=== PATIENT | female | born 1950 | race Caucasian/White ===

== ENCOUNTER 2022-02-21 21:41 | Emergency (ER) | payer OTHER ==
--- OUTSIDE RECORDS SUMMARY | 2022-02-21 21:44 | XMS REPORT | Continuity of Care Document ---
:1950 Author Organization [facility] t Address [address] [place] [address] Care Team Providers Name Role Phone SLY WOLFF Primary Care Physician Unavailable Phyllis Madrid Attending Clinician Unavailable AgAlina Attending Clinician Unavailable Radiology Attending Clinician Unavailable RADIOLOGY Attending Clinician Unavailable Sly Wolff NP Attending Clinician Unavailable Bhupinder Admitting Clinician Unavailable Payers Payer Name Policy Type Policy Number Effective Date Expiration Date [facility] [place]: [id number] 2013 [place] 00:00:00 CIGNA SUPPLEMENTAL - PLAN N CIGNA HEALTH AND LIFE INSURANCE (MEDICARE SUPPLEMENT[place] [id number] Problems Condition Condition Condition Status Onset Resolution Last Treating Co mments Source Name Details Category Date Date Treatment Clinician Date Glaucoma Glaucoma Problem Active Chowdhury ge 07-29 Family 00:00: Practic 00 e Overactive Overactive Problem Active V illage bladder Bladder 07-29 Family 00:00: Practic 00 e [id number] Non-season Problem Com mon al Spirit allergic - [facility] rhinitis [facility] due to [facility] [id number] Stress Problem Common incontinen Spirit ce - [facility] [id number] Pain, Problem Commo n [id number] joint, Spirit foot, - [facility] right [facility] [id number] Extensor Problem Commo n tendon Spirit disruption - [facility] Allergies, Adverse Reactions, Alerts Allergy Allergy Status Severity Reaction(s) Onset Inactive Treating Comm ents Source Name Type Date Date Clinician NO KNOWN Drug Active Univers ALLERGIE Class ity of S [facility] [id number] DA Active U [facility] penicill penicill Active Unknown Commo n in V in V [facility] Social History Social Habit Start Date Stop Date Quantity Comments Source History of Tobacco Use Co mmon [facility] Sex Assigned At Com mon [facility] Exposure to SARS-CoV-2 Not sure Un [facility] (event) [facility] Smoking Status Start Date Stop Date Source Unknown if ever smoked [facility] Never Smoker [facility] Former Smoker 2021 00:00:00 2021 00:00:00 Common S [facility] nter Medications Ordered Filled Start Stop Current Ordering Indication Dosage Frequency Signature Comments Components Source Medication Medication Date Date Medication? Clinician (SIG) Name Name Christine Burlesoniq 2022- No 1{table QD Myrbetriq 25 MG 25 MG 11-16 t} 25 MG 00:00: 00:00 00 :00 Myrbetriq Myrbetriq 2022- No 1{table QD Myrbetriq 25 MG 25 MG 11-16 t} 25 MG 00:00: 00:00 00 :00 Oxybutynin Oxybutynin 2021- No 1{table QD Oxybutynin Chloride ER Chloride ER 05-10 t} Chloride 10 MG 10 MG 00:00: 00:00 ER 10 MG 00 :00 Oxybutynin Oxybutynin 2021- No 1{table QD Oxybutynin Chloride ER Chloride ER 05-10 t} Chloride 10 MG 10 MG 00:00: 00:00 ER 10 MG 00 :00 Oxybutynin Oxybutynin 2021- No 1{table QD Oxybutynin Chloride ER Chloride ER 05-10 t} Chloride 10 MG 10 MG 00:00: 00:00 ER 10 MG 00 :00 Oxybutynin Oxybutynin 2021- No 1{table QD Oxybutynin Chloride ER Chloride ER 05-10 t} Chloride 10 MG 10 MG 00:00: 00:00 ER 10 MG 00 :00 Mirabegron Mirabegron 2021- No 1{table QD Mirabegron ER 25 MG ER 25 MG 04-12 t} ER 25 MG 00:00: 00:00 00 :00 Mirabegron Mirabegron 2021- No 1{table QD Mirabegron ER 25 MG ER 25 MG 04-12 t} ER 25 MG 00:00: 00:00 00 :00 oxybutynin oxybutynin No 1 Q1D oxybutynin [place] chloride 5 chloride 5 8-01 chloride 5 Family mg tablet 1 mg tablet 1 00:00: mg tablet Practic tablet tablet 00 1 tablet e every day every day every day by oral by oral by oral route. route. route. Oxybutynin Oxybutynin No Oxybutynin Claritin Claritin No Claritin Claritin Claritin No Claritin Oxybutynin Oxybutynin No Oxybutynin Claritin Claritin No Claritin Oxybutynin Oxybutynin No Oxybutynin Claritin Claritin No Claritin Oxybutynin Oxybutynin No Oxybutynin Oxybutynin Oxybutynin No Oxybutynin Claritin Claritin No Claritin Oxybutynin Oxybutynin No Oxybutynin Claritin Claritin No Claritin Oxybutynin Oxybutynin No Oxybutynin Claritin Claritin No Claritin Oxybutynin Oxybutynin No Oxybutynin Claritin Claritin No Claritin latanoprost latanoprost No latanopros [place] 0.005 % eye 0.005 % eye t 0.005 % Family drops drops eye drops Practic INSTILL 1 INSTILL 1 INSTILL 1 e DROP INTO DROP INTO DROP INTO BOTH EYES BOTH EYES BOTH EYES EVERY NIGHT EVERY NIGHT EVERY AT BEDTIME AT BEDTIME NIGHT AT BEDTIME tolterodine tolterodine No 1capsul Q1D tolterodin [place] ER 2 mg ER 2 mg e(s) e ER 2 mg Fami ly capsule,ext capsule,ext capsule,ex Practic ended ended tended e release 24 release 24 release 24 hr Take 1 hr Take 1 hr Take 1 capsule capsule capsule every day every day every day by oral by oral by oral route for route for route for 30 days. 30 days. 30 days. Vital Signs Vital Name Observation Time Observation Value Comments Source height 2021 15:00:00 66 [in_i] [facility] weight 2021 15:00:00 189.8 [lb_av] [facility] temperature 2021 15:00:00 97.6 [degF] Common [facility] bmi 2021 15:00:00 30.63 kg/m2 [facility] oximetry 2021 15:00:00 93 % [facility] respiratory rate 2021 15:00:00 16 /min Comm on [facility] blood pressure 2021 15:00:00 128 mm[Hg] [facility] [place] [place] - systolic [facility] blood pressure 2021 15:00:00 70 mm[Hg] Common [facility] - diastolic [facility] height 2021-09-16 13:00:00 66 [in_i] [facility] weight 2021-09-16 13:00:00 189.0 [lb_av] [facility] temperature 2021-09-16 13:00:00 97.7 [degF] [facility] bmi 2021-09-16 13:00:00 30.5 kg/m2 [facility] oximetry 2021-09-16 13:00:00 94 % [facility] respiratory rate 2021-09-16 13:00:00 17 /min Comm on [facility] blood pressure 2021-09-16 13:00:00 128 mm[Hg] Common [facility] - systolic [facility] blood pressure 2021-09-16 13:00:00 68 mm[Hg] Common [facility] - diastolic [facility] height 2021-04-25 09:00:00 66 [in_i] Common [facility] weight 2021-04-25 09:00:00 187 [lb_av] [facility] bmi 2021-04-25 09:00:00 30.18 kg/m2 [facility] blood pressure 2021-04-25 09:00:00 124 mm[Hg] Common [facility] - systolic [facility] blood pressure 2021-04-25 09:00:00 68 mm[Hg] Common [facility] - diastolic [facility] height 2021-04-12 09:00:00 66 [in_i] [facility] weight 2021-04-12 09:00:00 187.0 [lb_av] [facility] temperature 2021-04-12 09:00:00 97.4 [degF] [facility] bmi 2021-04-12 09:00:00 30.18 kg/m2 [facility] oximetry 2021-04-12 09:00:00 97 % [facility] respiratory rate 2021-04-12 09:00:00 16 /min Comm on [facility] blood pressure 2021-04-12 09:00:00 122 mm[Hg] [facility] [place] [facility] blood pressure 2021-04-12 09:00:00 64 mm[Hg] Common [facility] diastolic [facility] Height 2020-07-29 00:00:00 66 [in_i] [facility] BMI (Body Mass Index) 2020-07-29 00:00:00 30.7 kg/m2 [facility] Body Weight 2020-07-29 00:00:00 190 [lb_av] [facility] Procedures Procedure Date / Time Performing Clinician Source Performed XR SACRUM AND COCCYX 2021-01-19 17:13:17 Sly Wolff [facility] XR ANKLE <3 VW LEFT 2021-01-19 17:13:17 Sly Wolff [facility] BI SCREENING 2021-01-19 16:31:00 Requisition, [facility] TOMOSYNTHESIS BILATERAL [facility] 2011-02-26 00:00:00 [place] [facility] 2009-02-26 00:00:00 [place] [facility] 2001-03-07 00:00:[address] 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) 1975-02-26 00:00:00 Stormy saniya [facility] Cataract Surgery [facility] Plan of Care Planned Activity Planned Date Details Comments Source Instructions [facility] Encounters Start End Encounter Admission Attending Care Care Encounter Source Date/Time Date/Time Type Type Clinicians Facility Department ID 2021-11-10 Outpatient [place], [facility] [id number] Common 09:11:01 [facility] 2021-11-08 Outpatient [place], [facility] [id number] Common 15:19:01 [facility] 2021-05-06 Outpatient [place], [facility] [id number] Common 10:13:01 [facility] 2021-04-25 Outpatient [place], [facility] [id number] Common 10:34:02 [facility] 2021-04-19 Outpatient Madrid, [facility] [id number] Common 12:54:03 [facility] 2021-04-12 Outpatient Madrid, [facility] [id number] Common 08:32:02 [facility] 2022-01-03 2022-01-03 Outpatient Aguilar_M VFP VFP [id number] [id number] [place] 00:00:00 00:00:00 [id number] Family Practic e 2021 2021 OFFICE [facility] [id number] Co mmon 00:00:00 00:00:00 VISIT [facility] 4 [facility] 2021-09-21 2021-09-21 (WEB) STLC STLC [id number] Co mmon 00:00:00 00:00:00 [facility] 2021-09-162021-09-16 (MCR WELL) STLMLC STLMLC [id number] Common 00:00:00 00:00:00 Medicare Spiri t Wellness - [facility] 2021-09-16 2021-09-16 (TEL) STLMLC STLMLC [id number] Co mmon 00:00:00 00:00:00 Spirit - [facility] 2021-05-10 2021-05-10 OL DIG E/M STLMLC STLMLC [id number] Common 00:00:00 00:00:00 [facility] 11-20 Spir it MIN - [facility] 2021-04-25 2021-04-25 OFFICE STLMLC STLMLC [id number] Co mmon 00:00:00 00:00:00 VISIT NEW Spir it PT LEVEL 3 - [facility] 2021-04-12 2021-04-12 OFFICE STLMLC STLMLC [id number] Co mmon 00:00:00 00:00:00 VISIT NEW Spir it PT LEVEL 4 - [facility] 2021-01-19 2021-01-19 [facility] Radiology [facility] [id number] Univers 10:40:35 23:59:00 Encounter SPECIALTY [id number] ity of CARE [id number] [facility] AT [id number] Vt karmajunaid BAILEYDalia 807 [facility] 2021-01-19 2021-01-19 Outpatient R RADIOLOGY [facility] [id number] Univers 10:16:12 10:39:00 ity of [facility] 2021-01-19 2021-01-19 [facility] Radiology [facility] [id number] Univers 10:15:00 10:39:00 Encounter SPECIALTY [id number] ity [id number] [id number] Vt dical VIVIENNE 800 [facility] 2021-01-13 2021-01-13 Outpatient R Sly OS OSH [id number] [place] 00:00:00 00:00:00 Rebecca Wolff et 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 [place] [address] , Ph. 2020-07-28 2020-07-28 Outpatient Aguilar_M VFP VFP [id number] [place] 01:58:00 01:58:00 [id number] [facility] Practic e Results This patient has no known results.
[2022-02-21] MEDS ORDERED: NA CHLORIDE 0.9% 500 ML ONE (22:23)
[2022-02-21 22:33] LABS: Hematocrit 39.1 % (36.0-45.0); Lymphocytes % 15.6 % (15.3-44.8); MCV 97.1 fL (80-100); MPV 8.5 fL (7.6-11.3); Potassium 3.8 mmol/L (3.5-5.1); RBC Red Blood Cell Count 4.03 M/uL (3.86-4.86); Troponin High Sensitivity 4.7 pg/mL (<58.9)
[2022-02-21 22:36] LABS: Protime INR 0.98
[2022-02-21 23:42] LABS: SARS-COV-2 RT PCR NEGATIVE (NEGATIVE)
--- NOTE | 2022-02-22 00:39 | ER ---
Nurse's Notes [facility] Name: Ibeth Neff Age: 71 yrs Sex: Female : 1950 Arrival Date: 02/21/2022 Time: 21:43 Bed 8 Private MD: Diagnosis: Syncope;Dehydration Presentation: 02/21 21:44 Chief complaint: EMS states: " Patient was in the hot tub and when she got out she felt em6 over heated and fainted.". 21:44 Coronavirus screen: Client denies travel out of the [place] in the last 14 days. Ebola em6 Screen: Patient negative for fever greater than or equal to 101.5 degrees Fahrenheit, and additional compatible Ebola Virus Disease symptoms. Initial Sepsis Screen: Does the patient meet any 2 criteria? No. Patient's initial sepsis screen is negative. Does the patient have a suspected source of infection? No. Patient's initial sepsis screen is negative. Risk Assessment: Do you want to hurt yourself or someone else? Patient reports no desire to harm self or others. Onset of symptoms was February 21, 2022. 21:44 Method Of Arrival: EMS: [facility] em6 21:44 Acuity: SANDI 3 em6 Historical: - Allergies: 22:54 PENICILLINS; em6 - PMHx: 22:54 None; em6 - PSHx: 22:54 Total abdominal hysterectomy; cornea surgery; em6 - Immunization history:: Adult Immunizations unknown. - Social history:: Smoking status: unknown. - Family history:: not pertinent. - Hospitalizations: : No recent hospitalization is reported. Screenin:44 [facility] ED Fall Risk Assessment (Adult) History of falling in the last 3 months, em6 including since admission No falls in past 3 months (0 pts) Confusion or Disorientation No (0 pts) Intoxicated or Sedated No (0 pts) Impaired Gait No (0 pts) Mobility Assist Device Used No (0 pt) Altered Elimination No (0 pt) Score/Fall Risk Level 0 - 2 = Low Risk Oriented to surroundings, Maintained a safe environment, Educated pt \\T\\ family on fall prevention, incl call for assistance when getting out of bed, Assessed \\T\\ reinforced patient's understanding of fall precautions, Provided non-skid footwear, Hourly rounding (assess needs \\T\\ fall precautionary measures) done, Used ambulatory aids as needed (educated on \\T\\ assisted with), Used gait belt as appropriate. Abuse screen: Denies threats or abuse. Nutritional screening: No deficits noted. Nutritional screening: No deficits noted. Tuberculosis screening: No symptoms or risk factors identified. Assessment: 21:44 General: Appears in no apparent distress. Behavior is cooperative. Pain: Denies pain. em6 Neuro: Level of Consciousness is awake, alert, obeys commands, Oriented to person, place, time, situation. Cardiovascular: Patient's skin is warm and dry. Rhythm is sinus rhythm. Respiratory: Airway is patent Respiratory effort is even, unlabored, Respiratory pattern is regular, symmetrical. GI: Abdomen is non-distended, Bowel sounds present X 4 quads. Abd is soft and non tender X 4 quads. : No signs and/or symptoms were reported regarding the genitourinary system. EENT: No signs and/or symptoms were reported regarding the EENT system. Derm: No signs and/or symptoms reported regarding the dermatologic system. Musculoskeletal: Circulation, motion, and sensation intact. Range of motion: intact in all extremities. 22:50 Reassessment: Patient appears in no apparent distress at this time. No changes from em6 previously documented assessment. Patient and/or family updated on plan of care and expected duration. Pain level reassessed. Patient is alert, oriented x 3, equal unlabored respirations, skin warm/dry/pink. Vital Signs: 21:43 BP 114 / 61; Pulse 65; Resp 18; Pulse Ox 96% on R/A; Weight 86.18 kg (R); Height 5 ft. as6 6 in. (167.64 cm) (R); Pain 0/10; 23:33 BP 114 / 76; Pulse 61; Resp 17 S; Pulse Ox 94% on R/A; as6 02/22 00:25 BP 109 / 70; Pulse 63; Resp 17 S; Pulse Ox 94% on R/A; as6 02/21 21:43 Body Mass Index 30.67 (86.18 kg, 167.64 cm) as6 ED Course: 02/21 21:43 Patient arrived in ED. as6 21:44 Arm band placed on. as6 21:44 Bed in low position. Call light in reach. Side rails up X 1. spread cutter on. Pulse em6 ox on. NIBP on. Warm blanket given. 21:47 Warren Rosado MD is Attending Physician. rn 22:03 Initial lab(s) drawn, by me, sent to lab. Maintain EMS IV. Dressing intact. Good blood mb4 return noted. Site clean \\T\\ dry. Gauge \\T\\ site: 18G right AC. 22:04 Basic Metabolic Panel Sent. mb4 22:04 CBC with Diff Sent. mb4 22:04 Protime (+inr) Sent. mb4 22:04 Ptt, Activated Sent. mb4 22:04 Troponin High Sensitivity Sent. mb4 22:34 COVID-19/FLU A+B Sent. em6 22:49 Harini Littlejohn, RN is Primary Nurse. em6 22:52 Triage completed. em6 22:55 Chest Single View XRAY In Process Unspecified. EDMS 02/22 00:56 No provider procedures requiring assistance completed. IV discontinued, intact, ll3 bleeding controlled, No redness/swelling at site. Pressure dressing applied. Administered Medications: 02/21 22:34 Drug: NS 0.9% 500 ml Route: IV; Rate: bolus; Site: right antecubital; em6 Medication: 22:53 VIS not applicable for this client. em6 Outcome: 02/22 00:38 Discharge ordered by . rn 00:56 Discharged to home ambulatory, with significant other. ll3 00:56 Condition: stable 00:56 Discharge instructions given to patient, significant other, Instructed on discharge instructions, follow up and referral plans. Demonstrated understanding of instructions, follow-up care. 00:56 Patient left the ED. ll3 Signatures: Dispatcher [employer] EDGA Warren Rosado MD MD rn Baxter, Mackenzie mb4 Danny Fernandez RN RN as6 Guillermina Leonard RN RN ll3 Harini Littlejohn, RN RN em6
--- NOTE | 2022-02-22 00:39 | EDPHYS ---
Physician Documentation [facility] Name: Ibeth Neff Age: 71 yrs Sex: Female : 1950 Arrival Date: 02/21/2022 Time: 21:43 Bed 8 Private MD: ED Physician Warren Rosado HPI: 02/21 22:57 This 71 yrs old Female presents to ER via EMS with complaints of Fainting. rn 22:57 The patient has experienced syncope. Onset: The symptoms/episode began/occurred just rn prior to arrival. Duration: This was a single episode. Associated injury: The patient did not suffer any apparent associated injury. Associated signs and symptoms: Pertinent positives: dizziness, lightheadedness, Pertinent negatives: abdominal pain, chest pain, confusion, headache, seizure, shortness of breath. Current symptoms: Currently, the patient is not experiencing any symptoms. The patient has not experienced similar symptoms in the past. The patient has not recently seen a physician. Pt reports has had "a cold" the last few days, didn't feel well, tonight had 3 glasses of wine and got into hot tub, felt lightheaded and when stood up passed out. No fever. Reports nasal congestion/sore throat/cough. No chest pain/sob/abd pain/vomiting/diarrhea. Feels much better now. Initial BP was low, in 90s for EMS, given 800cc fluids by EMS with improvement of BP. Patient reports BP always runs on lower side, but not that low. . Historical: - Allergies: 22:54 PENICILLINS; em6 - PMHx: 22:54 None; em6 - PSHx: 22:54 Total abdominal hysterectomy; cornea surgery; em6 - Immunization history:: Adult Immunizations unknown. - Social history:: Smoking status: unknown. - Family history:: not pertinent. - Hospitalizations: : No recent hospitalization is reported. ROS: 22:57 Constitutional: Negative for fever, chills, and weight loss, Eyes: Negative for injury, rn pain, redness, and discharge, ENT: + nasal congestion and sore throat Neck: Negative for injury, pain, and swelling, Cardiovascular: Negative for chest pain, palpitations, and edema, Respiratory: Negative for shortness of breath, wheezing, and pleuritic chest pain, Abdomen/GI: Negative for abdominal pain, nausea, vomiting, diarrhea, and constipation, Back: Negative for injury and pain, MS/Extremity: Negative for injury and deformity, Skin: Negative for injury, rash, and discoloration, Neuro: Negative for headache, numbness, tingling, and seizure. Exam: 22:57 Constitutional: This is a well developed, well nourished patient who is awake, alert, rn and in no acute distress. Head/Face: Normocephalic, atraumatic. Eyes: Pupils equal round and reactive to light, extra-ocular motions intact. Lids and lashes normal. Conjunctiva and sclera are non-icteric and not injected. Cornea within normal limits. Periorbital areas with no swelling, redness, or edema. ENT: dry MM Neck: Trachea midline, no thyromegaly or masses palpated, and no cervical lymphadenopathy. Supple, full range of motion without nuchal rigidity, or vertebral point tenderness. No Meningismus. Cardiovascular: Regular rate and rhythm. No pulse deficits. Respiratory: No increased work of breathing, no retractions or nasal flaring. Abdomen/GI: Soft, non-tender Skin: Warm, dry MS/ Extremity: Pulses equal, no cyanosis. Neuro: Awake and alert, GCS 15, oriented to person, place, time, and situation. Cranial nerves II-XII grossly intact. Motor strength 5/5 in all extremities. Sensory grossly intact. 23:09 ECG was reviewed by the Attending Physician. rn Vital Signs: 21:43 BP 114 / 61; Pulse 65; Resp 18; Pulse Ox 96% on R/A; Weight 86.18 kg (R); Height 5 ft. as6 6 in. (167.64 cm) (R); Pain 0/10; 23:33 BP 114 / 76; Pulse 61; Resp 17 S; Pulse Ox 94% on R/A; as6 02/22 00:25 BP 109 / 70; Pulse 63; Resp 17 S; Pulse Ox 94% on R/A; as6 02/21 21:43 Body Mass Index 30.67 (86.18 kg, 167.64 cm) as6 MDM: 02/21 21:47 Patient medically screened. rn 02/22 00:36 Differential Diagnosis: cardiac arrhythmia, idiopathic syncope, vasovagal episode, rn dehydration, covid, flu. Data reviewed: vital signs, nurses notes, lab test result(s), EKG, radiologic studies, plain films, and as a result, I will discharge patient. Counseling: I had a detailed discussion with the patient and/or guardian regarding: the historical points, exam findings, and any diagnostic results supporting the discharge/admit diagnosis, lab results, radiology results, the need for outpatient follow up, to return to the emergency department if symptoms worsen or persist or if there are any questions or concerns that arise at home. Response to treatment: the patient's symptoms have markedly improved after treatment, and as a result, I will discharge patient. Special discussion: I discussed with the patient/guardian in detail that at this point there is no indication for admission to the hospital. It is understood, however, that if the symptoms persist or worsen the patient needs to return immediately for re-evaluation. Based on the history and exam findings, there is no indication for further emergent testing or inpatient evaluation. I discussed with the patient/guardian the need to see the primary care provider for further evaluation of the symptoms. ED course: Vitals stable, pt feels back to baseline, requests to be discharged, recommend outpt CT chest to further eval and rule out mass, although nothing to suggest is acute problem or related to today's complaint. Return precautions given and understood.. 02/21 21:52 Order name: Basic Metabolic Panel; Complete Time: 22:57 02/21 21:52 Order name: CBC with Diff; Complete Time: 22:57 02/21 21:52 Order name: Protime (+inr); Complete Time: 22:57 02/21 21:52 Order name: Ptt, Activated; Complete Time: 22:57 02/21 21:52 Order name: Troponin High Sensitivity; Complete Time: 22:57 02/21 21:52 Order name: COVID-19/FLU A+B; Complete Time: 23:43 02/21 21:52 Order name: Chest Single View XRAY 02/21 21:52 Order name: EKG; Complete Time: 21:53 02/21 21:52 Order name: Cardiac monitoring; Complete Time: 22:34 02/21 21:52 Order name: EKG - Nurse/Tech; Complete Time: 22:34 02/21 21:52 Order name: IV Saline Lock; Complete Time: 22:04 02/21 21:52 Order name: Labs collected and sent; Complete Time: 22:04 rn 02/21 21:52 Order name: O2 Per Protocol; Complete Time: :34 rn 02/21 21:52 Order name: O2 Sat Monitoring; Complete Time: :34 rn EC/27 23:09 Rate is 62 beats/min. Rhythm is regular. QRS [place] is Normal. IA interval is prolonged rn at 210 msec. QRS interval is normal. QT interval is normal. No Q waves. T waves are Normal. No ST changes noted. Clinical impression: NSR w/ Non-specific ST/T Changes and 1st degree heart block. Interpreted by me. Reviewed by me. Administered Medications: Drug: NS 0.9% 500 ml Route: IV; Rate: bolus; Site: right antecubital; em6 Disposition Summary: 02/22/22 00:38 Discharge Ordered Location: Home rn Problem: new rn Symptoms: have improved rn Condition: Stable rn Diagnosis - Syncope rn - Dehydration rn Followup: rn - With: Private Physician - When: As needed - Reason: Recheck today's complaints, Re-evaluation by your physician Discharge Instructions: - Discharge Summary Sheet rn - Dehydration, Adult rn - Syncope rn Forms: - Medication Reconciliation Form rn - Thank You Letter rn - Antibiotic corn miller - Prescription Opioid Use rn Signatures: Dispatcher [employer] Warren Billy MD MD rn Martinez, Erika RN RN em6
[2022-02-22 01:10] VITALS: O2SAT 94
[2022-02-22 01:14] VITALS: BP 109/70
--- NOTE | 2022-02-22 14:39 | RAD REPORT ---
EXAM DESCRIPTION: RAD - Chest Single View - 02/21/2022 10:53 pm CLINICAL HISTORY: 71-year-old female with cough. TECHNIQUE: Single view, AP portable chest was obtained. COMPARISON: None. FINDINGS: Unremarkable cardiac and mediastinal silhouette. Heart size is normal. Round density overl kaiser the projection of the cardiac silhouette suggestive of a large hiatal hernia. The possibility of mediastinal mass is considered less likely, however cannot be completely excluded measuring 10 cm. P lease correlate with patient's clinical history. Low lung volumes otherwise grossly clear without focal opacity, pneumothorax or pleural effusions. Ir regularity of the posterolateral left upper ribs the fourth and fifth ribs may reflect sequela of cynthia or healed injury. The visualized bones are within normal limits. IMPRESSION: 1. No acute cardiopulmonary abnormalities. 2. Round density overlying the projection of the cardiac silhouette suggestive of a large hiatal he rnia. The possibility of mediastinal mass is considered less likely, however cannot be completely exc luded measuring 10 cm. Further evaluation with chest x-ray may be considered. Electronically signed by: Kalli Brooks MD 02/21/2022 11:43 PM TELEPHONE CLEANER Due to temporary technical issues with the PACS/Fluency reporting system, reports are being signed by the in house radiologists without review as a courtesy to insure prompt reporting. The interpreting radiologist is fully responsible for the content of the report.
--- NOTE | 2022-02-23 17:48 | EKG ---
Test Date: 2022-02-21 Test Time: 22:28:15 Computing Consultant: MEASUREMENT RESULTS: Intervals: Rate: 62 IA: 210 QRSD: 80 QT: 392 QTc: 397 Echo: P: 67 IA: 210 QRS: -24 T: -38 INTERPRETIVE STATEMENTS: Sinus rhythm with 1st degree AV block ST & T wave abnormality, consider anterior ischemia Abnormal ECG No previous ECG available for comparison Electronically Signed On 02-23-22 17:44:45 CORNICE MAKER by Nba Gonzalez
== END 2022-02-22 00:56 | disposition home or self-care (01) ==
LOC: ER 21:41
DX: E86.0 Dehydration (principal); Z20.822 Contact with and (suspected) exposure to COVID-19; Z88.0 Allergy status to penicillin
CPT/HCPCS: 93005; 85025; 80048; 36415; 85610; 85730; 84484; 0240U; 71045; J7040

== ENCOUNTER 2022-07-07 11:01 | Emergency (ER) | payer OTHER ==
--- OUTSIDE RECORDS SUMMARY | 2022-07-07 11:05 | XMS REPORT | Continuity of Care Document ---
:1950 Author Organization [facility] t Address [address] [place] [address] Care Team Providers Name Role Phone SLY WOLFF Primary Care Physician Unavailable Phyllis Madrid Attending Clinician Unavailable Bhupinder Attending Clinician Unavailable Radiology Attending Clinician Unavailable RADIOLOGY Attending Clinician Unavailable Sly Wolff NP Attending Clinician Unavailable Bhupinder Admitting Clinician Unavailable Payers Payer Name Policy Type Policy Number Effective Date Ex[place] Date [place] [facility] [place] [id number] 2013 [employer] 00:00:00 CIGNA SUPPLEMENTAL - PLAN N CIGNA HEALTH AND LIFE INSURANCE (MEDICARE SUPPLEMENT[place] [id number] Problems Condition Condition Condition Status Onset Resolution Last Treating Co mments Source Name Details Category Date Date Treatment Clinician Date Glaucoma Glaucoma Problem Active Chowdhury ge - Family 00:00: Practic 00 e Overactive Overactive Problem Active V illage bladder Bladder - Family 00:00: Practic 00 e [id number] Non-season Problem Com mon al Spirit allergic - [facility] rhinitis [facility] due to [facility] [id number] Stress Problem Common incontinen Spirit ce - [facility] [id number] Pain, Problem Commo n [id number] joint, Spirit foot, - [facility] right [facility] [id number] Extensor Problem Commo n tendon Spirit disruption - [facility] Allergies, Adverse Reactions, Alerts Allergy Allergy Status Severity Reaction(s) Onset Inactive Treating Comm ents Source Name Type Date Date Clinician NO KNOWN Drug Active Univers ALLERGIE Class ity of S [facility] 299691 DA Active U [facility] penicill penicill Active Unknown Commo n in V in V [facility] Social History Social Habit Start Date Stop Date Quantity Comments Source History of Tobacco Use Co mmon [facility] Sex Assigned At Com mon [facility] Exposure to SARS-CoV-2 Not sure Un [facility] (event) [facility] Smoking Status Start Date Stop Date Source Never Smoker [facility] Unknown if ever smoked [facility] Former Smoker 2021 00:00:00 2021 00:00:00 Common S [facility] nter Medications Ordered Filled Start Stop Current Ordering Indication Dosage Frequency Signature Comments Components Source Medication Medication Date Date Medication? Clinician (SIG) Name Name Chanabelove Zayasbetriq 2022- No 1{table QD Myrbetriq 25 MG [...] :00 oxybutynin oxybutynin No 1 Q1D oxybutynin [facility] chloride 5 chloride 5 8-01 chloride 5 [...] Claritin No Claritin latanoprost latanoprost No latanopros [facility] 0.005 % eye 0.005 % eye t 0.005 % Family drops drops eye drops Practic INSTILL 1 INSTILL 1 INSTILL 1 e DROP INTO DROP INTO DROP INTO BOTH EYES BOTH EYES BOTH EYES EVERY NIGHT EVERY NIGHT EVERY AT BEDTIME AT BEDTIME NIGHT AT BEDTIME tolterodine tolterodine No 1capsul Q1D tolterodin [facility] ER 2 mg ER 2 mg e(s) [...] Comments Source height 2021 15:00:00 66 [in_i] Common [facility] weight 2021 15:00:00 189.8 [lb_av] [facility] temperature 2021 15:00:00 97.6 [degF] Common [facility] bmi 2021 15:00:00 30.63 kg/m2 [facility] S [facility] oximetry 2021 15:00:00 93 % [facility] respiratory rate 2021 15:00:00 16 /min Comm on [facility] blood pressure 2021 15:00:00 128 mm[Hg] Common [facility] - systolic [facility] blood pressure 2021 15:00:00 70 mm[Hg] Common [facility] - diastolic [facility] height 2021-09-16 13:00:00 66 [in_i] Common [facility] weight 2021-09-16 13:00:00 189.0 [lb_av] [facility] temperature 2021-09-16 13:00:00 97.7 [degF] Common [facility] bmi 2021-09-16 13:00:00 30.5 kg/m2 [facility] oximetry 2021-09-16 13:00:00 94 % [facility] respiratory rate 2021-09-16 13:00:00 17 /min Comm on [facility] blood pressure 2021-09-16 13:00:00 128 mm[Hg] Common [facility] - systolic [facility] blood pressure 2021-09-16 13:00:00 68 mm[Hg] Common [facility] - diastolic [facility] height 2021-04-25 09:00:00 66 [in_i] Common [facility] weight 2021-04-25 09:00:00 187 [lb_av] [facility] bmi 2021-04-25 09:00:00 30.18 kg/m2 [facility] blood pressure 2021-04-25 09:00:00 124 mm[Hg] Common [facility] - systolic [facility] blood pressure 2021-04-25 09:00:00 68 mm[Hg] Common [facility] - diastolic [facility] height 2021-04-12 09:00:00 66 [in_i] [facility] weight 2021-04-12 09:00:00 187.0 [lb_av] [facility] temperature 2021-04-12 09:00:00 97.4 [degF] [facility] bmi 2021-04-12 09:00:00 30.18 kg/m2 [facility] oximetry 2021-04-12 09:00:00 97 % [facility] respiratory rate 2021-04-12 09:00:00 16 /min Comm on Spirit [facility] blood pressure 2021-04-12 09:00:00 122 mm[Hg] [facility] systolic [facility] blood pressure 2021-04-12 09:00:00 64 mm[Hg] Common [facility] diastolic [facility] Height 2020-07-29 00:00:00 66 [in_i] [facility] BMI (Body Mass Index) 2020-07-29 00:00:00 30.7 kg/m2 [facility] Body Weight 2020-07-29 00:00:00 190 [lb_av] [facility] Procedures Procedure Date / Time Performing Clinician Source Performed XR SACRUM AND COCCYX 2021-01-19 17:13:17 [facility] XR ANKLE <3 VW LEFT 2021-01-19 17:13:17 Sly Wolff [facility] BI SCREENING 2021-01-19 16:31:00 Requisition, Paper [facility] TOMOSYNTHESIS BILATERAL [facility] 2011-02-26 00:00:00 [facility] 2009-02-26 00:00:00 [facility] Practice Eye Surgery 2001-03-07 00:00:00 [facility] 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 (Gynecology) 1975-02-26 00:00[facility]00 [facility] Plan of Care Planned Activity Planned Date Details Comments Source Instructions [facility] Encounters Start End Encounter Admission Attending Care Care Encounter Source Date/Time Date/Time Type Type Clinicians Facility Department ID 2022-05-11 Outpatient [place], STLMLC STLC [id number] Common 08:14:01 [facility] [address] [facility] 2022-05-09 Outpatient Madrid, STLMLC STLC [id number] Common 09:42:02 [facility] 2021-11-10 Outpatient Madrid, STLMLC STLC [id number] Common 09:11:01 [facility] 2021-11-08 Outpatient Madrid, STLMLC STLC [id number] Common 15:19:01 [facility] 2021-05-06 Outpatient Madrid, STLMLC STLMLC [id number] Common 10:13:01 [facility] 2021-04-25 Outpatient Madrid, STLMLC STLMLC [id number] Common 10:34:02 [facility] 2021-04-19 Outpatient Madrid, STLMLC STLC [id number] Common 12:54:03 [facility] 2021-04-12 Outpatient Madrid, STLMLC STLC [id number] Common 08:32:02 [facility] 2022-01-03 2022-01-03 Outpatient Aguilar_M VFP VFP [id number] 23-20 [facility] 00:00:00 00:00:00 [id number] Family Practic e 2021 2021 OFFICE STLMLC STLC [id number] Co mmon 00:00:00 00:00:00 VISIT [facility] ESTAB PT - CHI LEVEL [address] [facility] 2021-09-21 2021-09-21 (WEB) STLMLC STLMLC [id number] Co mmon 00:00:00 00:00:00 [facility] 2021-09-16 2021-09-16 (MCR WELL) STLMLC STLMLC [id number] Common 00:00:00 00:00:00 Medicare Spiri t Wellness - [facility] 2021-09-16 2021-09-16 (TEL) STLMLC STLMLC [id number] Co mmon 00:00:00 00:00:00 [facility] 2021-05-10 2021-05-10 OL DIG E/M STLMLC STLMLC [id number] Common 00:00:00 00:00:00 [facility] 11-20 Spir it MIN [facility] 2021-04-25 2021-04-25 OFFICE STLMLC STLMLC [id number] Co mmon 00:00:00 00:00:00 VISIT NEW Spir it PT LEVEL 3 - [facility] 2021-04-12 2021-04-12 OFFICE STLMLC STLMLC [id number] Co mmon 00:00:00 00:00:00 VISIT NEW Spir it PT LEVEL 4 - [facility] 2021-01-19 2021-01-19 [facility] Radiology [facility] [id number] Univers 10:40:35 23:59:00 Encounter SPECIALTY [id number] ity of CARE [id number] [facility] AT [id number] [address] 2021-01-19 2021-01-19 Outpatient R RADIOLOGY [facility] [id number] Univers 10:16:12 10:39:00 ity of [facility] 2021-01-19 2021-01-19 Hospital Radiology [facility] [id number] Univers 10:15:00 10:39:00 Encounter SPECIALTY [id number] ity of CARE [id number] [facility] [id number] Sd eduardo Abdullahi [facility] 2021-01-13 2021-01-13 Outpatient R Sly [facility] OS [id number] [place] 00:00:00 00:00:00 Rebecca Wolff et [facility] 2020-08-28 2020-08-28 Outpatient Aguilar_M VFP VFP [id number] 11:04:00 11:04:00 [id number] Family Practic e 2020-07-31 2020-07-31 Outpatient Aguilar_M VFP VFP [id number] 12:11:00 12:11:00 [id number] Family Practic e 2020-07-29 2020-07-29 John Aguilar_M VFP [place] - [id number] 00:00:00 00:00:00 [facility] [id number] Timmy Guardado - Pract luna MD: [address] [place] [address] , Ph. 2020-07-28 2020-07-28 Outpatient Aguilar_M VFP VFP [id number] [place] [address] 01:58:00 01:58:00 [id number] Family Practic e Results This patient has no known results.
[2022-07-07 11:28] LABS: Absolute Lymphocytes (CBC) 4.1 K/uL (0.7-4.9); Hematocrit 44.9 % (36.0-45.0); MPV 9.2 fL (7.6-11.3); RBC Red Blood Cell Count 4.67 M/uL (3.86-4.86)
[2022-07-07 11:33] LABS: Protime INR 0.92
--- NOTE | 2022-07-07 11:38 | RAD REPORT ---
EXAM DESCRIPTION: CT - Head Brain Wo Cont - 07/07/2022 11:29 am CLINICAL HISTORY: FALL, RT EYE INJURY COMPARISON: Orbits Wo Con W/ Mpr dated 07/07/2022 TECHNIQUE: All CT scans are performed using dose optimization technique as appropriate and may inclu de automated exposure control or mA/KV adjustment according to patient size. FINDINGS: No intracranial hemorrhage, hydrocephalus or extra-axial fluid collection.No areas of brai n edema or evidence of midline shift. Mild chronic small vessel ischemic changes. Trace maxillary sinus thickening bilaterally. The calvarium is intact. Right-sided scleral banding. H yperdensity with present within the globe. IMPRESSION: No acute intracranial abnormality.
--- NOTE | 2022-07-07 11:49 | RAD REPORT ---
EXAM DESCRIPTION: CT - CTORBIT CLINICAL HISTORY: fall last night COMPARISON: No comparisons TECHNIQUE: Axial 2 mm thick images of the face were obtained with sagittal and coronal reconstructio n images. All CT scans are performed using dose optimization technique as appropriate and may include automated exposure control or mA/KV adjustment according to patient size. FINDINGS: No acute facial bone fracture is seen.The mandible is intact. Status post right-sided scleral banding. Hyperattenuation present within the right globe.The right gl obe has a more oval configuration which is probably not related to acute trauma. Bilateral maxillary sinus mucosal thickening. Unfused ring of C1 . IMPRESSION: Status post scleral banding of the right globe. Hyperattenuation within the globe could be related to either vitreous hemorrhage from acute trauma or prior surgery. No fracture is appreciat ed. No retroconal abnormality.
[2022-07-07] MEDS ORDERED: HYDROCODONE/APAP 7.5/325 MG TAB ONE (11:53)
[2022-07-07 11:54] LABS: Potassium 3.6 mEq/L (3.5-5.1)
--- NOTE | 2022-07-07 12:19 | ER ---
Nurse's Notes [facility] Name: Ibeth Neff Age: 71 yrs Sex: Female : 1950 Arrival Date: 07/07/2022 Time: 11:01 Bed 20 Private MD: Diagnosis: Conjunctival hemorrhage, right eye Presentation: 07/07 11:09 Chief complaint: Patient states: FALL LAST NIGHT, NOW WITH APPARENT TRAUMA, SWELLING bp AND BLEEDING TO R EYE. Coronavirus screen: At this time, the client does not indicate any symptoms associated with coronavirus-19. Ebola Screen: No symptoms or risks identified at this time. Initial Sepsis Screen: Does the patient meet any 2 criteria? No. Patient's initial sepsis screen is negative. Does the patient have a suspected source of infection? No. Patient's initial sepsis screen is negative. Risk Assessment: Do you want to hurt yourself or someone else? Patient reports no desire to harm self or others. 11:09 Method Of Arrival: Wheelchair bp 11:09 Acuity: SANDI 2 bp 11:10 Onset of symptoms was July 06, 2022. jl7 Triage Assessment: 11:11 General: Appears distressed, uncomfortable, Behavior is calm, cooperative, appropriate bp for age. Pain: Complains of pain in right eye. EENT: Eyes R EYE APPARENT TRAUMA WITH EXPOSED TISSUE. Neuro: No deficits noted. Cardiovascular: Rhythm is sinus rhythm. Respiratory: No deficits noted. GI: No signs and/or symptoms were reported involving the gastrointestinal system. : No signs and/or symptoms were reported regarding the genitourinary system. Derm: No deficits noted. Musculoskeletal: No deficits noted. Historical: - Allergies: 11:10 PENICILLINS; bp - Home Meds: 11:12 eye drops [Active]; jl7 - PMHx: 11:12 None; jl7 - PSHx: 11:10 cornea surgery; Total abdominal hysterectomy; bp - Immunization history:: Last tetanus immunization: unknown. - Social history:: Smoking status: Patient denies any tobacco usage or history of. Screenin:13 [facility] ED Fall Risk Assessment (Adult) History of falling in the last 3 months, bp including since admission Yes- single mechanical fall (1 pt). Abuse screen: Denies threats or abuse. Denies injuries from another. Nutritional screening: No deficits noted. Tuberculosis screening: No symptoms or risk factors identified. Assessment: 11:13 General: SEE TRIAGE NOTE. bp Vital Signs: 11:10 BP 172 / 86; Pulse 64; Resp 15; Temp 97.9; Pulse Ox 93% ; Weight 86.18 kg; Height 5 ft. jl7 6 in. ; Pain 10/10; 11:36 BP 169 / 89; Pulse 67; Resp 18; Pulse Ox 94% on R/A; ko1 12:49 BP 157 / 80; Pulse 72; Resp 18; Pulse Ox 99% ; ko1 11:10 Body Mass Index 30.67 (86.18 kg, 167.64 cm) jl7 11:10 Pain Scale: Adult jl7 ED Course: 11:05 Patient arrived in ED. eb 11:06 Ricardo Zavala MD is Attending Physician. kdr 11:08 Kelly Almaraz, RN is Primary Nurse. ko1 11:10 Triage completed. bp 11:10 Arm band placed on right wrist. jl7 11:13 Patient has correct armband on for positive identification. Bed in low position. Call bp light in reach. Side rails up X2. Adult w/ patient. 11:13 Inserted saline lock: 20 gauge in right antecubital area, using aseptic technique. bp Blood collected. 11:30 Head Brain Wo Cont In Process Unspecified. EDMS 11:31 Orbits Wo Con W/ Mpr In Process Unspecified. EDMS 12:17 Lee Acrher MD is Referral Physician. kdr 12:48 No provider procedures requiring assistance completed. IV discontinued, intact, ko1 bleeding controlled, No redness/swelling at site. Pressure dressing applied. 14:23 Primary Nurse role handed off by Kelly Almaraz, KATHRIN jl7 15:09 Inserted saline lock: 22 gauge in right antecubital area, using aseptic technique. mb9 Administered Medications: 11:56 Drug: Hydrocodone-Acetaminophen PO (7.5 mg-325 mg) 1 tabs Route: PO; bp 12:30 Follow up: Response: No adverse reaction; Pain is decreased jl7 16:14 CANCELLED (right pt, wrong pt accountt): Rocephin - Rocephin (cefTRIAXone) IVPB 1 grams jl7 IVPB once over 30 mins; (mix in 50 mL NS) 16:14 CANCELLED (right pt, wrong pt account): NS 0.9% IV 125 ml IV at 75 ml/hr continuous jl7 Medication: 11:36 VIS not applicable for this client. ko1 Outcome: 12:18 Discharge ordered by . kdr 12:48 Discharged to home via wheelchair, with family. ko1 12:48 Condition: stable 12:48 Discharge instructions given to patient, family, Instructed on discharge instructions, follow up and referral plans. Demonstrated understanding of instructions, follow-up care. 12:49 Patient left the ED. ko1 15:50 Patient left the ED. eb Signatures: Dispatcher [employer] EDMS Ricardo Zavala MD MD kdr Leal, Jahala RN RN jl7 Jesus Sánchez RN RN Elizabeth Billings Kathy RN RN ko1 Thelma Mendoza, RN RN mb9 Corrections: (The following items were deleted from the chart) 11:12 11:12 Home Meds: None; jl7 jl7
--- NOTE | 2022-07-07 12:19 | EDPHYS ---
Physician Documentation [facility] Name: Ibeth Neff Age: 71 yrs Sex: Female : 1950 Arrival Date: 07/07/2022 Time: 11:01 Bed 20 Private MD: ED Physician Ricardo Zavala HPI: 07/07 12:28 This 71 yrs old Female presents to ER via Wheelchair with complaints of Right eye kdr bleeding and pain. 12:28 Patient states that she was getting out of the hot tub yesterday evening and slipped kdr and fell striking her right face on some portion of the tub and/or table. She went to bed not noticing any significant change in her vision in that eye or any other significant pain. Today she woke with pain and swelling of the right eye and subsequently started to have some bleeding on the way to the hospital. Patient does have appears to be a hematoma/up conjunctival hemorrhage that has ruptured in the right eye. Patient is otherwise healthy. Patient denies nausea vomiting or any other significant pains. Onset: The symptoms/episode began/occurred last night. Severity of symptoms: At their worst the symptoms were mild moderate just prior to arrival, in the emergency department the symptoms are unchanged. The patient has not experienced similar symptoms in the past. The patient has not recently seen a physician. Historical: - Allergies: 11:10 PENICILLINS; bp - Home Meds: 11:12 eye drops [Active]; jl7 - PMHx: 11:12 None; jl7 - PSHx: 11:10 cornea surgery; Total abdominal hysterectomy; bp - Immunization history:: Last tetanus immunization: unknown. - Social history:: Smoking status: Patient denies any tobacco usage or history of. ROS: 12:28 Constitutional: Negative for fever, chills, and weight loss, ENT: Negative for injury, kdr pain, and discharge, Neck: Negative for injury, pain, and swelling. 12:28 Eyes: Positive for injury or acute deformity, pain, redness, swelling, vision loss, of the outer aspect of conjuctiva of right eye, iris of right eye and inner aspect of conjuctiva of right eye, Negative for icterus, itching, matting. Exam: 12:28 Constitutional: This is a well developed, well nourished patient who is awake, alert, kdr and in no acute distress. Head/Face: Normocephalic, atraumatic. ENT: Nares patent. No nasal discharge, no septal abnormalities noted. Tympanic membranes are normal and external auditory canals are clear. Oropharynx with no redness, swelling, or masses, exudates, or evidence of obstruction, uvula midline. Mucous membranes moist. 12:28 Eyes: Periorbital structures: swelling, that is mild, on the right supraorbital ridge and right lower eyelid, ecchymosis, that is moderate, on the medial aspect of conjunctiva of right eye and right iris, Conjunctiva: subconjunctival hemorrhage(s), seen in the right eye, at 3 o'clock. Vital Signs: 11:10 BP 172 / 86; Pulse 64; Resp 15; Temp 97.9; Pulse Ox 93% ; Weight 86.18 kg; Height 5 ft. jl7 6 in. ; Pain 10/10; 11:36 BP 169 / 89; Pulse 67; Resp 18; Pulse Ox 94% on R/A; ko1 12:49 BP 157 / 80; Pulse 72; Resp 18; Pulse Ox 99% ; ko1 11:10 Body Mass Index 30.67 (86.18 kg, 167.64 cm) jl7 11:10 Pain Scale: Adult jl7 MDM: 11:35 Data reviewed: vital signs, nurses notes. ED course: Discussed with Dr. Archer, he will kdr see the patient in his office as long as there are no other significant associated injuries. 12:18 Patient medically screened. kdr 07/07 11:08 Order name: CBC with Diff; Complete Time: 12:14 kdr 07/07 11:08 Order name: Chem 7; Complete Time: 12:14 kdr 07/07 11:08 Order name: PT-INR; Complete Time: 12:14 kdr 07/07 11:20 Order name: Head Brain Wo Cont; Complete Time: 12:14 EDMS 07/07 11:21 Order name: Orbits Wo Con W/ Mpr; Complete Time: 12:14 EDMS Administered Medications: 11:56 Drug: Hydrocodone-Acetaminophen PO (7.5 mg-325 mg) 1 tabs Route: PO; bp 12:30 Follow up: Response: No adverse reaction; Pain is decreased jl7 16:14 CANCELLED (right pt, wrong pt accountt): Rocephin - Rocephin (cefTRIAXone) IVPB 1 grams jl7 IVPB once over 30 mins; (mix in 50 mL NS) 16:14 CANCELLED (right pt, wrong pt account): NS 0.9% IV 125 ml IV at 75 ml/hr continuous jl7 Disposition Summary: 07/07/22 12:18 Discharge Ordered Location: Home kdr Problem: new kdr Symptoms: have improved kdr Condition: Stable kdr Diagnosis - Conjunctival hemorrhage, right eye kdr Followup: kdr - With: Private Physician - When: 2 - 3 days - Reason: If symptoms return, Further diagnostic work-up, Recheck today's complaints, Continuance of care, Re-evaluation by your physician Followup: kdr - With: Lee Archer MD - When: Upon discharge from the Emergency Department - Reason: If symptoms return, Further diagnostic work-up, Recheck today's complaints, Continuance of care, Re-evaluation by your physician Discharge Instructions: - Discharge Summary Sheet kdr - Subconjunctival Hemorrhage kdr Forms: - Medication Reconciliation Form kdr - Thank You Letter kdr Signatures: Dispatcher [employer] EDMS Ricardo Zavala MD MD kdr Melissa Sheikh RN RN jl7 Jesus Sánchez RN Thelma Mike, RN RN mb9 Corrections: (The following items were deleted from the chart) 11:12 11:12 Home Meds: None; jl7 jl7 11:21 11:12 CT-ORBITS WITHOUT CONTRAST ordered. EDMO EDMO
[2022-07-07 12:56] VITALS: TEMP 97.9
[2022-07-07 12:59] VITALS: BP 157/80; O2SAT 99
[2022-07-07] MEDS ORDERED: CEFTRIAXONE 1000 MG/VIAL ONE (15:02)
[2022-07-07] MEDS ORDERED: NA CHLORIDE 0.9% 1,000 ML ONE (15:02)
[2022-07-07] MEDS ORDERED: NA CHLORIDE 0.9% 50 ML ONE (15:03)
== END 2022-07-07 15:50 | disposition home or self-care (01) ==
LOC: ER 11:01
DX: H11.31 Conjunctival hemorrhage, right eye (principal); Z88.0 Allergy status to penicillin
CPT/HCPCS: 85025; 80048; 36415; 85610; 70450; 70480; 76377; 99284; J7030; J0696

== ENCOUNTER 2022-07-07 15:53 | Emergency (ER) | payer OTHER ==
[2022-07-07] MEDS ORDERED: ONDANSETRON 4 MG/2 ML VIAL ONE (16:53)
[2022-07-07] MEDS ORDERED: MORPHINE 4 MG/ML SYR ONE (16:53)
--- OUTSIDE RECORDS SUMMARY | 2022-07-07 16:53 | XMS REPORT | Continuity of Care Document ---
:1950 Author Organization [facility] t Address [address] [place] [address] Care Team Providers Name Role Phone SLY WOLFF Primary Care Physician Unavailable Phyllis [place] Attending Clinician Unavailable AgAlina Attending Clinician Unavailable Radiology Attending Clinician Unavailable RADIOLOGY Attending Clinician Unavailable Sly Wolff NP Attending Clinician Unavailable Bhupinder Admitting Clinician Unavailable Payers Payer Name Policy Type Policy Number Effective Date Expiration Date S k[place] MED[place]: [id number] 2013 [place] 00:00:00 CIGNA SUPPLEMENTAL - PLAN N CIGNA HEALTH AND LIFE INSURANCE [place]MEDICARE SUPPLEMENT[place] [id number] Problems Condition Condition Condition Status Onset Resolution Last Treating Co mments Source Name Details Category Date Date Treatment Clinician Date Glaucoma Glaucoma Problem Active Chowdhury ge 07-29 Family 00:00: Practic 00 e Overactive Overactive Problem Active V illage bladder Bladder 07-29 Family 00:00: Practic 00 e [id number] Non-season Problem Com mon al [facility] allergic - [facility] rh[facility] due to [facility] [id number] Stress Problem Common incontinen Spirit ce - [facility] [id number] Pain, Problem Commo n [id number] joint, Spirit foot, - [facility] right [facility] [id number] Extensor Problem Commo n tendon [facility] disruption - [facility] Allergies, Adverse Reactions, Alerts Allergy Allergy Status Severity Reaction(s) Onset Inactive Treating Comm ents Source Name Type Date Date Clinician [id number] DA Active U [place] NO KNOWN Drug Active Univers ALLERGIE Class ity of S [facility] penicill penicill Active Unknown Commo n in V in V [facility] Social History Social Habit Start Date Stop Date Quantity Comments Source History of Tobacco Use Co mmon [facility] Sex Assigned At Com mon [facility] Exposure to SARS-CoV-2 Not sure Un [facility] Smoking Status Start Date Stop Date Source Never Smoker [facility] Unknown if ever smoked [facility] Former Smoker 2021 00:00:00 2021 00:00:00 Common S [facility] nter Medications Ordered Filled Start Stop Current Ordering Indication Dosage Frequency Signature Comments Components Source Medication Medication Date Date Medication? Clinician (SIG) Name Name Christine Zayasbetriq 2022- No 1{table QD Myrbetriq 25 [...] :00 oxybutynin oxybutynin No 1 Q1D oxybutynin [facility] chloride 5 chloride 5 8-01 chloride [...] Claritin No Claritin latanoprost latanoprost No latanopros [facility] 0.005 % eye 0.005 % eye t 0.005 % Family drops drops eye drops Practic INSTILL 1 INSTILL 1 INSTILL 1 e DROP INTO DROP INTO DROP INTO BOTH EYES BOTH EYES BOTH EYES EVERY NIGHT EVERY NIGHT EVERY AT BEDTIME AT BEDTIME NIGHT AT BEDTIME tolterodine tolterodine No 1capsul Q1D tolterodin [facility] ER 2 mg ER 2 mg [...] Source height 2021 15:00:00 66 [in_i] Common [facility] weight 2021 15:00:00 189.8 [lb_av] [facility] temperature 2021 15:00:00 97.6 [degF] Common [facility] bmi 2021 15:00:00 30.63 kg/m2 Common [facility] oximetry 2021 15:00:00 93 % Common [facility] respiratory rate 2021 15:00:00 16 /min Comm on [facility] blood pressure 2021 15:00:00 128 mm[Hg] [facility] [place] [facility] blood pressure 2021 15:00:00 70 mm[Hg] Common [facility] - diastolic [facility] height 2021-09-16 13:00:00 66 [in_i] [facility] weight 2021-09-16 13:00:00 189.0 [lb_av] [facility] temperature 2021-09-16 13:00:00 97.7 [degF] [facility] bmi 2021-09-16 13:00:00 30.5 kg/m2 [facility] oximetry 2021-09-16 13:00:00 94 % Common [facility] respiratory rate 2021-09-16 13:00:00 17 /min Comm on [facility] blood pressure 2021-09-16 13:00:00 128 mm[Hg] Common [facility] - systolic [facility] blood pressure 2021-09-16 13:00:00 68 mm[Hg] Common [facility] - diastolic [facility] height 2021-04-25 09:00:00 66 [in_i] Common [facility] weight 2021-04-25 09:00:00 187 [lb_av] Common [facility] bmi 2021-04-25 09:00:00 30.18 kg/m2 [facility] blood pressure 2021-04-25 09:00:00 124 mm[Hg] Common [facility] - systolic [facility] blood pressure 2021-04-25 09:00:00 68 mm[Hg] Common [facility] - diastolic [facility] height 2021-04-12 09:00:00 66 [in_i] Common [facility] weight 2021-04-12 09:00:00 187.0 [lb_av] [facility] temperature 2021-04-12 09:00:00 97.4 [degF] [facility] bmi 2021-04-12 09:00:00 30.18 kg/m2 [facility] oximetry 2021-04-12 09:00:00 97 % [facility] respiratory rate 2021-04-12 09:00:00 16 /min Comm on [facility] blood pressure 2021-04-12 09:00:00 122 mm[Hg] [facility] [place] [facility] blood pressure 2021-04-12 09:00:00 64 mm[Hg] Common [facility] - diastolic [facility] Height 2020-07-29 00:00:00 66 [in_i] [facility] BMI (Body Mass Index) 2020-07-29 00:00:00 30.7 kg/m2 [facility] Body Weight 2020-07-29 00:00:00 190 [lb_av] [facility] Procedures Procedure Date / Time Performing Clinician Source Performed XR SACRUM AND COCCYX 2021-01-19 17:13:17 Sly Wolff [facility] XR ANKLE <3 VW LEFT 2021-01-19 17:13:17 Sly Wolff [facility] BI SCREENING 2021-01-19 16:31:00 Requisition, Paper [facility] TOMOSYNTHESIS BILATERAL [facility] 2011-02-26 00:00:00 [facility] Arjun pierre [facility] Eye Surgery 2009-02-26 00:00:00 [facility] 2001-03-07 00:00:00 [facility] CATH LAB RADIOLOGICAL TECHNOLOGIST Surgery (Gynecology) 1975-02-26 00:00:00 [facility] Plan of Care Planned Activity Planned Date Details Comments Source Instructions [facility] Encounters Start End Encounter Admission Attending Care Care Encounter Source Date/Time Date/Time Type Type Clinicians Facility Department ID 2022-05-11 Outpatient [place], [facility]MLC [facility] [id number] Common 08:14:01 [facility] 2022-05-09 Outpatient Madrid, STLC [facility] [id number] Common 09:42:02 [facility] 2021-11-10 Outpatient [place], [facility] [id number] Common 09:11:01 [facility] 2021-11-08 Outpatient [place], STLC [facility] [id number] Common 15:19:01 [facility] 2021-05-06 Outpatient [place], ST[facility] [id number] Common 10:13:01 [facility] 2021-04-25 Outpatient [place], STLC [facility] [id number] Common 10:34:02 [facility] 2021-04-19 Outpatient [place], STLMLC [facility] [id number] Common 12:54:03 [facility] 2021-04-12 Outpatient [place], STLC [facility] [id number] Common 08:32:02 [facility] 2022-01-03 2022-01-03 Outpatient Aguilar_M VFP VFP [id number] 23-20 [facility] 00:00:00 00:00:00 [id number] Family Practic e 2021 2021 OFFICE STLMLC STLMLC [id number] Co mmon 00:00:00 00:00:00 VISIT Spirit ESTAB PT - [facility] LEVEL 4 [facility] 2021-09-21 2021-09-21 (WEB) STLMLC STLMLC [id number] Co mmon 00:00:00 00:00:00 [facility] 2021-09-16 2021-09-16 (MCR WELL) STLMLC STLMLC [id number] Common 00:00:00 00:00:00 Medicare Spiri t Wellness - [facility] 2021-09-16 2021-09-16 (TEL) STLMLC STLMLC [id number] Co mmon 00:00:00 00:00:00 [facility] 2021-05-10 2021-05-10 OL DIG E/M STLMLC STLMLC [id number] Common 00:00:00 00:00:00 SV 11-20 Spir it MIN [facility] 2021-04-25 2021-04-25 OFFICE STLMLC STLMLC [id number] Co mmon 00:00:00 00:00:00 VISIT NEW Spir it PT LEVEL 3 - [facility] 2021-04-12 2021-04-12 OFFICE STLMLC STLMLC [id number] Co mmon 00:00:00 00:00:00 VISIT NEW Spir it PT LEVEL 4 - [facility] 2021-01-19 2021-01-19 [facility] Radiology [facility] [id number] Univers 10:40:35 23:59:00 Encounter SPECIALTY [id number] ity of CARE [id number] [facility] AT [id number] [address] 2021-01-19 2021-01-19 Outpatient R RADIOLOGY [facility] [id number] Univers 10:16:12 10:39:00 ity of [facility] 2021-01-19 2021-01-19 [facility] Radiology [facility] [id number] Univers 10:15:00 10:39:00 Encounter SPECIALTY [id number] ity of CARE [id number] [facility] AT [id number] Ar eduardo Abdullahi [facility] 2021-01-13 2021-01-13 Outpatient Talia Sly [facility] [id number] [place] 00:00:00 00:00:00 Rebecca Wolff et [facility] 2020-08-28 2020-08-28 Outpatient Aguilar_M VFP VFP [id number] 11:04:00 11:04:00 [id number] Family Practic e 2020-07-31 2020-07-31 Outpatient Aguilar_M VFP VFP [id number] [place] [address] 12:11:00 12:11:00 [id number] Family Practic e 2020-07-29 2020-07-29 John Aguilar_M VFP [place] - [id number] 00:00:00 00:00:00 [facility] [id number] [facility] Pract luna MD: 302 SRosalinda VM_HOU_Proa paulette [facility] [address], [place] [address] , Ph. 2020-07-28 2020-07-28 Outpatient Aguilar_M VFP VFP [id number] 01:58:00 01:58:00 [id number] Family Practic e Results This patient has no known results.
--- NOTE | 2022-07-07 17:24 | EDPHYS ---
Physician Documentation [facility] Name: Ibeth Neff Age: 71 yrs Sex: Female : 1950 Arrival Date: 07/07/2022 Time: 15:53 Bed 20 Private MD: ED Physician Ricardo Zavala HPI: 07/07 16:09 This 71 yrs old Female presents to ER via Unassigned with complaints of Eye Injury. kdr 16:10 Patient was seen here in the ED and subsequently [facility]. After full exam by Dr. Archer, the patient was thought to have a ruptured globe. Patient was sent back to the ED for surgery sometime this evening. Initially the patient had implied decreased but some minimal vision from the right eye however on repeat he evaluation and questioning, the patient states she had no vision from the right eye and so did not perceive any change in her visual status. Patient otherwise was stable and without other issues. She was brought back to the ED and placed in bed and hold for expected repair by Dr. Archer later this evening.. Onset: The symptoms/episode began/occurred last night. Severity of symptoms: At their worst the symptoms were mild in the emergency department the symptoms are unchanged. The patient has not recently seen a physician. Historical: - Allergies: 16:10 PENICILLINS; jl7 - Home Meds: 16:10 eye drops [Active]; jl7 - PMHx: 16:54 None; jl7 - PSHx: 16:10 cornea surgery; Total abdominal hysterectomy; jl7 - Immunization history:: Adult Immunizations unknown, Last tetanus immunization: unknown. - Social history:: Smoking status: Patient denies any tobacco usage or history of. ROS: 16:10 Constitutional: Negative for fever, chills, and weight loss, Eyes: Negative for injury, kdr pain, redness, and discharge, Neck: Negative for injury, pain, and swelling, Cardiovascular: Negative for chest pain, palpitations, and edema, Respiratory: Negative for shortness of breath, cough, wheezing, and pleuritic chest pain, Abdomen/GI: Negative for abdominal pain, nausea, vomiting, diarrhea, and constipation, : Negative for injury, bleeding, discharge, and swelling, MS/Extremity: Negative for injury and deformity, Skin: Negative for injury, rash, and discoloration, Neuro: Negative for headache, weakness, numbness, tingling, and seizure activity. Exam: 16:10 Eyes: The right eye is presently covered with a shield with a slight bit of bleeding. kdr It was not further examined due to the prior exam by Dr. Archer.. 16:10 Constitutional: This is a well developed, well nourished patient who is awake, alert, kdr and in no acute distress. Vital Signs: 16:21 BP 156 / 85; Pulse 69; Resp 17; Pulse Ox 95% ; jl7 16:29 Weight 86.18 kg; Height 5 ft. 4 in. ; Pain 0/10; mb9 16:55 BP 174 / 91; Pulse 78; Resp 15; Pulse Ox 98% ; jl7 16:29 Body Mass Index 32.61 (86.18 kg, 162.56 cm) mb9 16:29 Pain Scale: Adult mb9 MDM: 16:10 Data reviewed: vital signs. ED course: Patient remained stable in the ED.. kdr 16:44 Patient medically screened. snw Administered Medications: 15:09 Drug: NS 0.9% IV 1000 ml Route: IV; Rate: 125 ml/hr; Site: right antecubital; jl7 17:31 Follow up: IV Status: Infusion continued upon admission ap3 15:09 Drug: Rocephin - Rocephin (cefTRIAXone) IVPB 1 grams Route: IVPB; Infused Over: 30 jl7 mins; Site: right antecubital; 15:39 Follow up: Response: No adverse reaction; IV Status: Completed infusion jl7 16:51 Drug: morphine IVP or IV 4 mg Route: IVP; Infused Over: 4 mins; Site: right antecubital;jl7 17:31 Follow up: Response: No adverse reaction; Pain is decreased ap3 16:51 Drug: Ondansetron IVP 4 mg Route: IVP; Site: right antecubital; jl7 17:31 Follow up: Response: No adverse reaction ap3 Disposition Summary: 07/07/22 17:23 Hospitalization Ordered Hospitalization Status: Observation kdr Provider: Lee Archer Location: Operating Room kdr Condition: Fair kdr Problem: new kdr Symptoms: are unchanged kdr Bed/Room Type: Standard kdr Room Assignment: kdr Diagnosis - Ruptured globe on the right kdr Discharge Instructions: - Discharge Summary Sheet sk Forms: - Medication Reconciliation Form kdr - SBAR form sk Signatures: Ricardo Zavala MD MD kdr Birdie Pierre FNP-C [employer] Melissa Sheikh RN RN jl7 Emily Mason RN ap3
--- NOTE | 2022-07-07 17:24 | ER ---
Nurse's Notes [facility] Name: Ibeth Neff Age: 71 yrs Sex: Female : 1950 Arrival Date: 07/07/2022 Time: 15:53 Bed 20 Private MD: Diagnosis: Ruptured globe on the right Presentation: 07/07 16:07 Chief complaint: Pt was seen today and discharged to followup with Dr. Archer. Dr. Archer [facility] sent pt back to ED after assessment of the pt's injury and reported to Dr. Zavala that he will take the pt to the OR for a ruptured globe to the right eye. Coronavirus screen: At this time, the client does not indicate any symptoms associated with coronavirus-19. Ebola Screen: No symptoms or risks identified at this time. Mechanism of Injury: Fall from standing position. The patient reports a positive loss of vision. The patient's loss of vision began pt with loss of eyesight prior to injury. Risk Assessment: Do you want to hurt yourself or someone else? Patient reports no desire to harm self or others. Onset of symptoms was July 06, 2022. 16:07 Method Of Arrival: Ambulatory [facility] 16:07 Acuity: SANDI 2 jl7 16:30 Initial Sepsis Screen: Does the patient meet any 2 criteria? No. Patient's initial mb9 sepsis screen is negative. Does the patient have a suspected source of infection? No. Patient's initial sepsis screen is negative. Triage Assessment: 16:10 General: Appears in no apparent distress. uncomfortable, Behavior is calm, cooperative, jl7 appropriate for age. Pain: Complains of pain in right eye Pain currently is 4 out of 10 on a pain scale. EENT: Eyes right eye with visible tissue protruding. Neuro: Level of Consciousness is awake, alert, obeys commands, Oriented to person, place, time, situation. Cardiovascular: Patient's skin is warm and dry. Respiratory: Airway is patent Respiratory effort is even, unlabored, Respiratory pattern is regular, symmetrical. Derm: Skin is pink, warm \T\ dry. Historical: - Allergies: 16:10 PENICILLINS; jl7 - Home Meds: 16:10 eye drops [Active]; jl7 - PMHx: 16:54 None; jl7 - PSHx: 16:10 cornea surgery; Total abdominal hysterectomy; jl7 - Immunization history:: Adult Immunizations unknown, Last tetanus immunization: unknown. - Social history:: Smoking status: Patient denies any tobacco usage or history of. Screenin:30 [facility] ED Fall Risk Assessment (Adult) History of falling in the last 3 months, mb9 including since admission Yes- physiologic fall (2 pts) Confusion or Disorientation No (0 pts) Intoxicated or Sedated No (0 pts) Impaired Gait No (0 pts) Mobility Assist Device Used No (0 pt) Altered Elimination No (0 pt) Score/Fall Risk Level 3 or more points = High Risk Oriented to surroundings, Maintained a safe environment, Educated pt \T\ family on fall prevention, incl call for assistance when getting out of bed. Abuse screen: Denies threats or abuse. Nutritional screening: No deficits noted. Tuberculosis screening: No symptoms or risk factors identified. Assessment: 16:20 Reassessment: see triage assessment. mb9 Vital Signs: 16:21 BP 156 / 85; Pulse 69; Resp 17; Pulse Ox 95% ; jl7 16:29 Weight 86.18 kg; Height 5 ft. 4 in. ; Pain 0/10; mb9 16:55 BP 174 / 91; Pulse 78; Resp 15; Pulse Ox 98% ; jl7 16:29 Body Mass Index 32.61 (86.18 kg, 162.56 cm) mb9 16:29 Pain Scale: Adult mb9 ED Course: 15:55 Patient arrived in ED. mr 15:57 Ricardo Zavala MD is Attending Physician. eb 16:10 Triage completed. jl7 16:10 Arm band placed on right wrist. jl7 16:19 Thelma Mendoza RN is Primary Nurse. mb9 16:19 Placed in gown. Bed in low position. Call light in reach. Side rails up X 1. Client mb9 placed on continuous cardiac and pulse oximetry monitoring. NIBP monitoring applied. library monitor on. 16:19 Inserted saline lock: 22 gauge in right antecubital area, using aseptic technique. mb9 16:30 No provider procedures requiring assistance completed. mb9 17:20 Lee Archer MD is Hospitalizing Provider. kdr 17:30 Patient admitted, IV remains in place. ap3 Administered Medications: 15:09 Drug: NS 0.9% IV 1000 ml Route: IV; Rate: 125 ml/hr; Site: right antecubital; jl7 17:31 Follow up: IV Status: Infusion continued upon admission ap3 15:09 Drug: Rocephin - Rocephin (cefTRIAXone) IVPB 1 grams Route: IVPB; Infused Over: 30 jl7 mins; Site: right antecubital; 15:39 Follow up: Response: No adverse reaction; IV Status: Completed infusion jl7 16:51 Drug: morphine IVP or IV 4 mg Route: IVP; Infused Over: 4 mins; Site: right antecubital;jl7 17:31 Follow up: Response: No adverse reaction; Pain is decreased ap3 16:51 Drug: Ondansetron IVP 4 mg Route: IVP; Site: right antecubital; jl7 17:31 Follow up: Response: No adverse reaction ap3 Medication: 16:20 VIS not applicable for this client. mb9 Outcome: 17:23 Decision to Hospitalize by Provider. kdr 17:30 Admitted to OR ap3 17:30 Condition: good 17:30 Discharge instructions given to patient, Instructed on the need for admit. 17:31 Patient left the ED. ap3 Signatures: Ricardo Zavala MD MD kdr Rivera, Mary mr Leal, Jahala, RN RN jl7 Emily Mason RN RN ap3 Elizabeth Dave, Thelma Taylor, RN RN mb9
[2022-07-07] MEDS ORDERED: POVIDONE-IODINE 5% EYE DROPS ONE (17:29)
[2022-07-07] MEDS ORDERED: BSS OPTHALMIC SOL 15 ML OPTH ONE (17:29)
[2022-07-07] MEDS ORDERED: BALANCED SALT IRRIG PLAIN 500 ML IRR ONE (17:29)
[2022-07-07] MEDS ORDERED: DUOVISC 1 KIT OPTH ONE ×2 (17:30→17:55)
[2022-07-07] MEDS ORDERED: TOBRADEX 0.3-0.1% OPTH OINTMENT ONE (17:30)
[2022-07-07] MEDS ORDERED: SUCCINYLCHOLINE 20 MG/ML (10 ML) IV ONE (18:07)
[2022-07-07] MEDS ORDERED: FENTANYL CITR 100 MCG/2 ML ONE (18:10)
[2022-07-07] MEDS ORDERED: ROCURONIUM 50 MG/5 ML VIAL IV ONE (18:10)
[2022-07-07] MEDS ORDERED: propofoL 200 MG/20 ML VIAL IV ONE (18:10)
[2022-07-07] MEDS ORDERED: MIDAZOLAM HCL 2 MG/2 ML INJ ONE (18:10)
[2022-07-07] MEDS ORDERED: NEOSTIGMINE 1 MG/ML -10 ML VIAL ONE (19:11)
[2022-07-07] MEDS ORDERED: GLYCOPYRROLATE 0.2 MG/ML SYR ONE (19:11)
[2022-07-07] MEDS ORDERED: NA CHLORIDE 0.9% 1,000 ML ONE (20:00)
[2022-07-07] MEDS ORDERED: CODEINE 30MG/APAP 300MG TAB ONE (20:52)
[2022-07-07 21:24] VITALS: BP 140/80; TEMP 98.4; O2SAT 93
--- NOTE | 2022-07-08 02:35 | OP ---
Date of Procedure: 07/07/2022 Surgeon: Lee Archer MD Lpn: None. Preoperative Diagnosis: Ruptured globe, right eye. Postoperative Diagnosis: Ruptured globe, right eye. Procedure Performed: Repair of ruptured globe, right eye. Description Of Procedure: After being properly identified in preoperative holding area, the patient was taken back to the operating room where a time-out was performed. The patient was then prepped by myself secondary to the protrusion of intraocular contents over the cornea. Of note, the globe was partially deflated with blood present on the patient's cheek and nose which had not been visualized i n my office. After I gently prepped the globe consistent with ruptured globe protocols, the drape wa s placed and a lid speculum used to open the lids. Examination of the eye underneath the operating m icroscope revealed extrusion of intra-ocular contents coming from a gap in the graft host junction na emery from approximately 12 o'clock to 4 o'clock position. The intraocular contents were reposited i nto the globe and the sutures were placed around from the graft to the host site in an interrupted fa shion, applying repeated doses of Healon as needed in order to perform the globe and reposit the piec es. No significant amount of uveal tissue was removed and then multiple sutures were placed and repl aced. Eventually, a total of 9 interrupted sutures were placed with the knots rotated and buried. A t various points throughout the procedure, an iris sweep was used in order to confirm no entrapment o f material into either the suture or the graft host junction. At no point was this actually found to be the case. Intra-ocular air was injected toward the end of the case in order to fully form the an terior chamber and again tested for water tightness, which was achieved and once this along with a go od cosmetic result achieved, the procedure concluded with the patient tolerating the procedure under general anesthesia for the entire time. The eye was patched over TobraDex ointment and the patient t aken to the postoperative holding area. She will be discharged later tonight along with the pain med icine and followup with me over the weekend. As I explained to the patient beforehand, the point of this surgery was globe salvage. The patient had previous retinal detachment in addition to the previ ous penetrating keratoplasty and had preoperative vision of count fingers with a low vision potential as she was measured an LP in my office. She has an extremely poor prognosis and may eventually requ hermelinda an enucleation. The patient has understanding of this. This was discussed with both her and her . SAGRARIO/HERRERA Voice ID: [id number] Report ID: [id number]
== END 2022-07-07 21:37 | disposition home or self-care (01) ==
LOC: ER 15:53
DX: S05.31XA Ocular laceration without prolapse or loss of intraocular tissue, right eye, initial encounter (principal); Z88.0 Allergy status to penicillin
CPT/HCPCS: 65280; 96365; 96361; 96375; 99285; J2704; J2710; J2250; J3010; J2405; J7030